=== PATIENT | female | born 1980 | race American Indian/Alaskan Native ===

== ENCOUNTER 2017-08-04 11:44 | Emergency (ER) | payer MEDICAID ==
[2017-08-04 11:59] VITALS: TEMP 99.2; O2SAT 99
[2017-08-04 12:51] LABS: EOS # 0.1 K/uL (0.0-0.7); LYMPH # 1.5 K/uL (1.0-4.3); MEAN PLATELET VOLUME 8.6 fL (7.2-11.7); MONO # 0.4 K/uL (0.0-0.8)
[2017-08-04 12:53] LABS: BASO % 0.9 % (0.0-2.0); EOS % 1.9 % (0.0-4.0); HEMATOCRIT 26.5 % (34.0-47.0); LYMPH % 27.9 % (20.0-40.0); MEAN CORPUSCULAR HEMOGLOBIN 20.6 pg (27.0-31.0); MEAN CORPUSCULAR HGB CONC 31.4 g/dL (33.0-37.0); MONO % 7.6 % (0.0-10.0); RED CELL DISTRIBUTION WIDTH 26.6 % (11.5-14.5); WHITE BLOOD COUNT 5.3 K/uL (4.8-10.8)
[2017-08-04 12:54] LABS: MEAN CELL VOLUME 65.4 fL (81.0-99.0)
[2017-08-04 13:00] LABS: CHLORIDE 104 mmol/L (98-107); POTASSIUM 3.3 mmol/L (3.6-5.2); SODIUM 141 mmol/L (132-148)
[2017-08-04 13:03] LABS: BLOOD UREA NITROGEN 9 mg/dL (7-17); CALCIUM 9.3 mg/dl (8.6-10.4); CARBON DIOXIDE 21 mmol/L (22-30); GFR AFRICAN-AMERICAN > 60; GLUCOSE,RANDOM 73 mg/dL (65-105)
--- NOTE | 2017-08-04 13:05 | C.PDOC ---
History Of Present Illness 37 yr old female with PMHx of anemia, presents to the ER for evaluation of intermittent retrosternal chest pain for the past 1 week. Patient erports, pain is localized, non-radiating, intermittent, aching, self-limited. Patient states she cannot recall if anything makes it worse or better, self limited episodes, denies pleuritic sx. Pt admits, has hx of iron anemia and hx of iron transfusion , not complaint with medication for year. Pt sts, " decided to come now to check my level". AT present time, pt denies active CP. Otherwise, Patient denies fever, chi,lls, recent illness, headache, dizziness, visual changes, focal deficits, neck pain, CP, SOB, dyspnea, diaphoresis, palpitations, nausea, vomiting, abdominal pain, back pain, UTI sx, denies peripheral edema. Ambulate to ED for evaluation, not in any apparent distress. Time Seen by Provider: 08/04/17 12:12 Chief Complaint (Nursing): Chest Pain History Per: Patient History/Exam Limitations: no limitations Onset/Duration Of Symptoms: Days (1 week) Current Symptoms Are (Timing): Still Present Past Medical History Reviewed: Historical Data, Nursing Documentation, Vital Signs Vital Signs: Last Vital Signs Temp 99.2 F 08/04/17 11:56 Pulse 68 08/04/17 15:07 Resp 20 08/04/17 15:07 BP 104/70 08/04/17 15:07 Pulse Ox 99 08/04/17 14:44 - Medical History PMH: Anemia Family History: States: No Known Family Hx - Social History Hx Tobacco Use: No Hx Alcohol Use: No Hx Substance Use: No - Immunization History Hx Tetanus Toxoid Vaccination: No Hx Influenza Vaccination: No Hx Pneumococcal Vaccination: No Review Of Systems Except As Marked, All Systems Reviewed And Found Negative. Constitutional: Negative for: Fever Cardiovascular: Positive for: Chest Pain (Retro sternal ). Negative for: Palpitations Respiratory: Negative for: Shortness of Breath Gastrointestinal: Negative for: Nausea, Vomiting, Abdominal Pain Neurological: Negative for: Weakness, Numbness, Headache Physical Exam - Physical Exam Appears: Non-toxic, No Acute Distress Skin: Warm, Dry, No Rash Head: Normacephalic Eye(s): bilateral: PERRL Nose: No Flaring, No Discharge Oral Mucosa: Moist, No Drooling Tongue: Normal Appearing Throat: No Erythema, No Exudate, No Drooling Neck: Supple Chest: Symmetrical, No Tenderness Cardiovascular: Rhythm Regular, No Murmur, No JVD, Other ((-) carotid bruits) Respiratory: No Decreased Breath Sounds, No Accessory Muscle Use, No Rales, No Rhonchi, No Stridor, No Wheezing Gastrointestinal/Abdominal: Soft, No Tenderness, No Distention, No Guarding Back: No CVA Tenderness Extremity: Normal ROM, No Pedal Edema, No Swelling Neurological/Psych: Oriented x3, Normal Speech, Normal Cognition ED Course And Treatment - Laboratory Results Result Diagrams: 08/04/17 12:48 08/04/17 12:48 ECG: Interpreted By Me, Viewed By Me ECG Rhythm: Sinus Rhythm Interpretation Of ECG: SR@84/min,NAD, no acute T wave or ST-T changes. O2 Sat by Pulse Oximetry: 99 (RA) Pulse Ox Interpretation: Normal Progress Note: Blood work review, hemoglobinemia noted, mild hypokalemia. EKG, CXR - normal study. Results review and case discussed with ED attending DR. Malik. Discharge with outpt f/u recommend. On re-eval, pt is afebrile, hemodynamicaly stable. Non-toxic. PulseOx 99% RA. ENT: No acute findings. Neck: SUpple, (-) JVD, (-) carotid bruits. Lungs: CTA B/L, BS equal B/L. CVS: (+)S1S2, reg, (-) murmur. ABd: benign, (-) guarding, (-) rebound. Back: (-) CVA tenderness. No peripheral edema. Results review and discussed with pt. Pt admits, results appears at baseline. Pt has hx of iron transfusion, " did not see my doctor for year now". Pt advised and ref. to f/u with PMD in 1-2 days for re-eavl. return to ED if any worsening or new changes. Pt understand and agrees with discharges. Medical Decision Making Medical Decision Making: PLAN: * CXR * EKG * Troponin * D-Dimer * CBC * BMP * HCG * Urinalysis Disposition - Disposition Referrals: [facility] [Outside] [facility] [Outside] Disposition: HOME/ ROUTINE Disposition Time: 14:35 Condition: STABLE Additional Instructions: Take medication as prescribed Follow up with PMD in 2-3 days for re-evaluation. Return to ED if any worsening or new changes. 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 - Scribe Statement The provider has reviewed the documentation as recorded by the Scribe Nya Lee All medical record entries made by the Cristoferibmeeta were at my direction and personally dictated by me. I have reviewed the chart and agree that the record accurately reflects my personal performance of the history, physical exam, medical decision making, and the department course for this patient. I have also personally directed, reviewed, and agree with the discharge instructions and disposition.
[2017-08-04 13:40] LABS: RBC URINE < 1 /hpf (0-3); URINE BACTERIA RARE (<OCC); URINE BILIRUBIN NEGATIVE (NEGATIVE); URINE BLOOD NEGATIVE (NEGATIVE); URINE COLOR Yellow (YELLOW); URINE GLUCOSE (UA) NORMAL (Normal); URINE KETONE NEGATIVE (NEGATIVE); URINE LEUKOCYTE ESTERASE 3+ Leu/uL (Negative); URINE PROTEIN NEGATIVE (NEGATIVE); WBC URINE 2 /hpf (0-5)
--- NOTE | 2017-08-04 14:17 | RAD ---
HISTORY: chest pain COMPARISON: Chest x-ray performed 09/18/14 TECHNIQUE: Chest PA and lateral FINDINGS: LUNGS: Patchy opacities at the left lung base may reflect atelectasis or pneumonia. Please note that chest x-ray has limited sensitivity for the detection of pulmonary masses. PLEURA: No significant pleural effusion identified. No definite pneumothorax . CARDIOVASCULAR: The cardiomediastinal silhouette appears within normal limits of size. OSSEOUS STRUCTURES: No acute osseous abnormality identified. VISUALIZED UPPER ABDOMEN: Unremarkable. OTHER FINDINGS: None. IMPRESSION: Patchy opacities at the left lung base may reflect atelectasis or pneumonia. Correlate clinically.
[2017-08-04 15:08] VITALS: BP 104/70; PULSE 68; RESP 20
== END 2017-08-04 15:16 | disposition home or self-care (01) ==
LOC: C.ER 11:44
DX: R07.9 Chest pain, unspecified (principal); D64.9 Anemia, unspecified